=== PATIENT | male | born 2000 | race American Indian/Alaskan Native ===

== ENCOUNTER 2021-03-13 14:16 | Emergency (ER) | payer SELFPAY | END 2021-03-13 18:00 | LOC: ED 14:16 | DX: M25.549 Pain in joints of unspecified hand (principal); Z53.21 Procedure and treatment not carried out due to patient leaving prior to being seen by health care provider ==

== ENCOUNTER 2021-07-09 16:55 | Emergency (ER) | payer SELFPAY ==
[2021-07-09 17:30] VITALS: BP 126/67
--- NOTE | 2021-07-09 18:39 | Emergency Department Report ---
- General Chief Complaint: Wound/Laceration Stated Complaint: GLASS IN HAND Time Seen by Provider: 07/09/21 18:13 Source: patient Mode of arrival: Ambulatory Limitations: No Limitations - History of Present Illness Initial Comments: 21-year-old male presents to the ER today complaint of puncture wound to the palmar surface of his right hand. Patient states that he was washing dishes, when one of the clear glasses broke and punctured his right hand. Patient has a small puncture wound right along the thenar eminence. He states that he did remove some glass from the wound but he feels like there is still a piece of glass lodged inside the wound. He reports pain mainly over the thenar eminence, and also intermittent bleeding from the wound. He reports pain with movement of the thumb but he is able to move it. He reports no numbness, tingling or any additional symptoms. He is uncertain of his last tetanus vaccine. -: Sudden, This afternoon - Related Data Previous Rx's Medication Instructions Recorded Last Taken Type Ibuprofen [Motrin] 600 mg PO Q8H PRN #30 tablet 07/09/21 Unknown Rx cephALEXin [Keflex] 500 mg PO Q8HR #21 cap 07/09/21 Unknown Rx Allergies Allergy/AdvReac Type Severity Reaction Status Date / Time No Known Allergies Allergy Verified 07/09/21 18:25 ED Review of Systems ROS: Stated complaint: GLASS IN HAND Other details as noted in HPI Comment: All other systems reviewed and negative Respiratory: denies: cough, shortness of breath, wheezing Cardiovascular: denies: chest pain, palpitations, dyspnea on exertion, edema, syncope, paroxysmal nocturnal dyspnea Musculoskeletal: myalgia Skin: other (Puncture wound, right hand) ED Past Medical Hx - Medications Home Medications: Home Medications Medication Instructions Recorded Confirmed Last Taken Type Ibuprofen [Motrin] 600 mg PO Q8H PRN #30 tablet 07/09/21 Unknown Rx cephALEXin [Keflex] 500 mg PO Q8HR #21 cap 07/09/21 Unknown Rx ED Physical Exam - General Limitations: No Limitations General appearance: alert, in no apparent distress - Head Head exam: Present: atraumatic, normocephalic, normal inspection ED Course Vital Signs 07/09/21 17:29 Temperature 98.3 F Pulse Rate 60 Respiratory 16 Rate Blood Pressure 126/67 [Right] O2 Sat by Pulse 100 Oximetry - Laceration /Wound Repair Right Volar Hand Wound Location: upper extremity (Right hand, thenar eminence) Wound Length (cm): 2 Wound's Depth, Shape: superficial Wound Explored: foreign body removed (Patient did have a large piece of glass e mbedded in the area which was removed in 1 piece) Irrigated w/ Saline (ccs): 100 Betadine Prep?: Yes Anesthesia: 1% Lidocaine Volume Anesthetic (ccs): 6 Wound Debrided: minimal Wound Repaired With: sutures Suture Size/Type: 4:0, nylon Number of Sutures: 3 Layer Closure?: No Sterile Dressing Applied?: Yes Progress: Patient had a small puncture wound/laceration measuring about 1 cm noted to the thenar eminence of his right hand. X-ray did show that he had an embedded foreign body/glass in that area. The wound did have to be extended under the 1 cm to be removed and it was removed successfully in 1 piece. Wound was irrigated thoroughly. Patient had good movement of his thumb after removal and sensation over the thumb was intact and cap refill was normal. 3 sutures was placed to close the wound after removal of foreign body. Patient tolerated the procedure well without any complication. Neosporin dressing applied. Wound care discussed with patient. ED Medical Decision Making - Radiology Data Radiology results: report reviewed Patient: NABIL FALL MR#: [id number] : 2000 Acct:[id number] Age/Sex: 21 / M ADM Date: 07/09/21 Loc: ED Attending Dr: Ordering Physician: TETE CORNELIUS Date of Service: 07/09/21 Procedure(s): XR hand 3+V RT Accession Number(s): [id number] cc: TETE CORNELIUS Fluoro Time In Minutes: Right hand 3 views INDICATION: Right hand pain. IMPRESSION: There is linear foreign body projecting within the soft tissues between the thumb metacarpal and index finger metacarpal consistent with glass. No fracture or subluxation. Signer Name: Andrea Fernandez MD Signed: 07/09/2021 6:39 PM Workstation Name: [id number] Transcribed By: BC Dictated By: Andrea Fernandez MD Electronically Authenticated By: Andrea Fernandez MD Signed Date/Time: 07/09/211838 DD/ 37 TD/TT: Patient: NABIL FALL MR#: [id number] : 2000 Acct:[id number] Age/Sex: 21 / M ADM Date: 07/09/21 Loc: ED Attending Dr: Ordering Physician: ANTONIO MURDOCK Date of Service: 07/09/21 Procedure(s): XR hand 2V RT Accession Number(s): [id number] cc: ANTONIO MURDOCK Fluoro Time In Minutes: RIGHT HAND 3 VIEW(S) INDICATION / CLINICAL INFORMATION: Status post foreign body removal COMPARISON: Earlier same day FINDINGS: BONES / JOINT(S): No acute fracture or subluxation. No significant arthritis. SOFT TISSUES: Interval removal of previously noted linear foreign object in the thenar region. No residual radiopaque foreign body identified. ADDITIONAL FINDINGS: None. Signer Name: Jesús Romero MD Signed: 07/09/2021 7:48 PM Workstation Name: [id number] Transcribed By: SB Dictated By: JESÚS ROMERO MD Electronically Authenticated By: JESÚS ROMERO MD Signed Date/Time: 07/09/211947 DD/ 45 TD/TT: Critical care attestation.: If time is entered above; I have spent that time in minutes in the direct care of this critically ill patient, excluding procedure time. ED Disposition Clinical Impression: Foreign body of right hand, Puncture wound of right hand Disposition: HOME / SELF CARE / HOMELESS Is pt being admited?: No Does the pt Need Aspirin: No Condition: Stable Instructions: Hand or Foot Foreign Body, Adult, Puncture Wound, Sutured Wound Care, [id number] Additional Instructions: It is important that you keep the area clean daily with soap and water. Clean just once a day unless your hand is soiled. Dry well after each cleaning and put apply thin layer of Neosporin to the wound. Do this daily for the next 10 days which will be the time sutures will need to be removed. You can return here or follow-up with your PCP to for suture removal. Take the Keflex as prescribed as prophylactic for any infection. Take the ibuprofen as prescribed for pain. Return to the ER sooner if there is any signs and symptoms of infection such as pus drainage increasing redness and swelling. Prescriptions: cephALEXin [Keflex] 500 mg PO Q8HR #21 cap Ibuprofen [Motrin] 600 mg PO Q8H PRN #30 tablet PRN Reason: Pain Referrals: [facility] [Provider Group] - 7-10 days PARKER ROBLERO MD [Staff Physician] - 7-10 days Forms: Work/School Release Form(ED) Time of Disposition: 20:07
[2021-07-09] MEDS ORDERED: TETANUS,DIPH,PERTUSS(ACELL) VACCINE 0.5 ML SYRINGE IM ONE (18:40)
[2021-07-09] MEDS ORDERED: LIDOCAINE (1%) 10 MG/1 ML VIAL 20 ML MDV INFILTRATI ONE (18:44)
--- NOTE | 2021-07-09 18:44 | XRay Report ---
Right hand 3 views INDICATION: Right hand pain. IMPRESSION: There is linear foreign body projecting within the soft tissues between the thumb metacar pal and index finger metacarpal consistent with glass. No fracture or subluxation. Signer Name: Andrea Frenandez MD Signed: 07/09/2021 6:39 PM Workstation Name: [id number]
--- NOTE | 2021-07-09 19:52 | XRay Report ---
RIGHT HAND 3 VIEW(S) INDICATION / CLINICAL INFORMATION: Status post foreign body removal COMPARISON: Earlier same day FINDINGS: BONES / JOINT(S): No acute fracture or subluxation. No significant arthritis. SOFT TISSUES: Interval removal of previously noted linear foreign object in the thenar region. No res idual radiopaque foreign body identified. ADDITIONAL FINDINGS: None. Signer Name: Jesús Romero MD Signed: 07/09/2021 7:48 PM Workstation Name: [id number]
[2021-07-09] MEDS ORDERED: NEOMY 3.5 MG/BACIT 400 UNITS/POLY B 5000 UNITS/GM OINT PACKET TP ONE (20:04)
== END 2021-07-09 20:33 | disposition home or self-care (01) ==
LOC: ED 16:55
DX: S61.431A Puncture wound without foreign body of right hand, initial encounter (principal); W25.XXXA Contact with sharp glass, initial encounter; Y93.89 Activity, other specified; Y92.89 Other specified places as the place of occurrence of the external cause; Y99.8 Other external cause status
CPT/HCPCS: 12041; 73120; 73130; 90471; 90715; 99283; J3490